=== PATIENT | male | born 1975 | race Two or more races ===

== ENCOUNTER 2017-10-31 16:26 | Emergency (ER) | payer OTHER ==
[~2017-10-31] VITALS: Ht 165.1 cm; Wt 87.1 kg
[2017-10-31] MEDS ORDERED: VYVANSE40 MG (16:42)
== END 2017-10-31 19:11 | disposition home or self-care (01) ==
LOC: ER 16:26
DX: N20.0 Calculus of kidney (principal); R10.31 Right lower quadrant pain

== ENCOUNTER 2018-03-31 06:39 | Emergency (ER) | payer OTHER ==
[~2018-03-31] VITALS: Ht 165.1 cm; Wt 93.0 kg
[~2018-03-31 06:39] MED LIST: VYVANSE40 MG
== END 2018-03-31 13:01 | disposition home or self-care (01) ==
LOC: ER 06:39
DX: N21.0 Calculus in bladder (principal)